=== PATIENT | male | born 1945 ===

== ENCOUNTER 2016-12-08 12:34 | Day surgery (SDC) | payer MEDICARE ==
--- NOTE | ~2016-12-08 | OP ---
Record Of Operation [facility] [address] [place]. [address] NAME: FADIA GONCALVES : 47 STATUS : [facility]#: [id number] AGE: 71 ADM/REG DATE : 12/08/16 MR#: [id number] REPORT SERV DATE: 12/09/16 DICTATED BY: ELIZABETH MALLORY DATE: 12/08/16 REPORT STATUS : Draft TRANSCRIBED BY: MODL DATE: 12/08/16 DATE OF PROCEDURE: 12/08/2016 PREOPERATIVE DIAGNOSES: Four months of nausea with food avoidance and weight loss with gallstones. POSTOPERATIVE DIAGNOSES: Four months of nausea with food avoidance and weight loss with gallstones with no evidence of acute cholecystitis and a normal intraoperative cholangiogram and diagnostic laparoscopy. PROCEDURES: Diagnostic laparoscopy with cholecystectomy and intraoperative cholangiogram. SURGEON: Elizabeth Mallory M.D. ANESTHESIA: General endotracheal. ESTIMATED BLOOD LOSS: Nil. FLUIDS: Crystalloid. SPECIMEN: Gallbladder. DRAINS: None. COMPLICATION: None. CONDITION: Good. INDICATIONS: Mr. Goncalves is a 71-year-old, who has about a 4-month history of postprandial nausea, food avoidance, and weight loss. At no time has he had pain of any sort. He has undergone an extensive workup. Only abnormality identified is gallstones without evidence of cholecystitis. After review of risks, benefits, options, side effects, we are proceeding with cholecystectomy to try to get symptom relief. PROCEDURE IN DETAIL: After being identified in preop holding, he was brought to the OR and positioned supine. General endotracheal anesthesia was induced. Time-out was performed. The abdomen was prepped and draped sterilely. Ancef was given intravenously. Marcaine was infiltrated. Infraumbilical vertical skin incision was made. The skin was grasped with towel clips, elevated, and a Veress needle was inserted into the peritoneal cavity as confirmed by saline drop test. A 15-mm carbon dioxide pneumoperitoneum was created. The Veress needle was removed and a 5-mm trocar was inserted. A 30-degree laparoscope was inserted within the peritoneal cavity and there was no visceral injury. Intraabdominal content was inspected, appeared normal. A supple noninflamed gallbladder was evident. We did evaluate the pelvis. There was no obvious abnormality, but pericolonic fat did obscure the view somewhat. In a supine position, after Marcaine infiltration and appropriate skin incision, a 10-mm trocar was inserted subxiphoid. We then advanced atraumatic grasper, Record Of Operation [facility] [address] [facility] [place]. [address] NAME: FADIA GONCALVES : 47 STATUS : [facility] PAT#: [id number] AGE: 71 ADM/REG DATE : 12/08/16 MR#: [id number] REPORT SERV DATE: 12/09/16 DICTATED BY: ELIZABETH MALLORY DATE: 12/08/16 REPORT STATUS : Draft TRANSCRIBED BY: ARNEL DATE: 12/08/16 carefully manipulated the sigmoid colon, was able to identify and inspect rectum, sigmoid, left colon, transverse colon, right colon, and although there was some evidence of some diverticula in the sigmoid. There was no evidence of diverticulitis, mass, or other abnormality. We turned our attention to gallbladder. The patient was positioned head up, foot down, and rolled right side up. After Marcaine infiltration and appropriate skin incisions, a 10-mm trocar was inserted again as previously noted subxiphoid and then two 5-mm were inserted subcostally on the right in the midclavicular and anterior axillary line. The gallbladder was grasped and elevated. The infrahepatic space was well exposed. There was no identifiable pathology. The peritoneal folds at the neck and gallbladder were dissected open. Small cystic duct egressing gallbladder was evident, dissected circumferential, and then an occlusive clip was placed across the neck. A cystic ductotomy was made and cholangiogram catheter was inserted and anchored. The patient was brought supine. Fluoroscopy was brought on the field and on cholangiography with fluoro, multiple radiopaque gallstones were evident. There was a normal flow of contrast through a small caliber cystic duct into a normal caliber common duct with prompt flow distal into duodenum and with additional installation of contrast, it was evident the proper hepatic duct, left and right hepatic duct. With apparent normal study with no dilation, no filling defects and again flow into duodenum readily evident, fluoro was taken off the field. The patient was repositioned. Laparoscopic instrumentation was reinserted. Gallbladder was re-retracted. Cholangiocatheter was removed. The cystic duct was clipped closely x3 on the common duct side of cannulation and the cystic duct was divided at the point of cannulation. Next, carefully dissected in Calot's triangle and identified blood vessel, which was dissected circumferential, clipped x3, divided between middle clip on gallbladder side. We used hook cautery and dissected further up the gallbladder through Calot's triangle and identified additional vessel coursing into the gallbladder as had the previous. This was dissected circumferential, clipped x3, divided between middle clip on gallbladder side. We then used a hook cautery and dissected gallbladder out of gallbladder fossa, this went smoothly without getting in the liver or gallbladder. The gallbladder was placed in an EndoCatch and after extension of the skin and fascial incision, subxiphoid gallbladder was extracted. Again, there was no inflammatory change, but there was large volume of small stones in the 3-4 mm range. We now reinserted the laparoscopic instrumentation, suctioned all suprahepatic fluid, thoroughly inspected and there was good clip positioning. No bleeding. No evidence of bile leak. At this point, Mr. Goncalves was brought supine and upper abdominal trocars were removed with visualization through laparoscope. There was no bleeding. The abdomen was desufflated. The infraumbilical laparoscope and trocar were removed. Subxiphoid fascia was closed with two [id number] sutures of 0 Vicryl. Dermis was closed in all incisions with 4-0 Monocryl followed by Benzoin, Steri-Strips, and sterile dressing. Mr. Goncalves tolerated the surgery quite well. He was recovered from his anesthetic, extubated, and transferred to the recovery room in good condition. Record Of Operation [address] [place]. [address] NAME: FADIA GONCALVES : 47 STATUS : [facility]#: [id number] AGE: 71 ADM/REG DATE : 12/08/16 MR#: [id number] REPORT SERV DATE: 12/09/16 DICTATED BY: ELIZABETH MALLORY DATE: 12/08/16 REPORT STATUS : Draft TRANSCRIBED BY: ARNEL DATE: 12/08/16 RITU/ARNEL Elizabeth Mallory M.D. / [id number] CC: Elizabeth Mallory M.D. Jayden Woods MD
[~2016-12-08 12:34] MED LIST: ASA5GR PO; ATEN25 PO
== END 2016-12-08 19:23 | disposition home or self-care (01) ==
LOC: SDC 12:34
PROVIDERS: Surgery
PROC: BF131ZZ Fluoroscopy of Gallbladder and Bile Ducts using Low Osmolar Contrast (ICD-10-PCS; 2016-12-08)
PROC: 0FT44ZZ Resection of Gallbladder, Percutaneous Endoscopic Approach (ICD-10-PCS; principal; 2016-12-08 13:45)
DX: K80.10 Calculus of gallbladder with chronic cholecystitis without obstruction (principal); I10 Essential (primary) hypertension; N20.0 Calculus of kidney; E78.00 Pure hypercholesterolemia, unspecified; Z95.1 Presence of aortocoronary bypass graft; Z88.1 Allergy status to other antibiotic agents; Z88.8 Allergy status to other drugs, medicaments and biological substances; Z79.82 Long term (current) use of aspirin; Z79.899 Other long term (current) drug therapy; Z87.891 Personal history of nicotine dependence; Z98.41 Cataract extraction status, right eye; Z98.42 Cataract extraction status, left eye; Z96.1 Presence of intraocular lens
CPT/HCPCS: 71010; 74300; 82150; 88304; A9270-GY; J0690; J2710; J3010; Q9967